=== PATIENT | female | born 1930 | race Caucasian/White ===

== ENCOUNTER 2020-08-18 11:02 | Emergency (ER) | payer MEDICARE, OTHER ==
[~2020-08-18] VITALS: Ht 160 cm; Wt 56.2 kg
[2020-08-18] MEDS ORDERED: CALCIUM 600 +1 EAC5 PO (11:28)
[2020-08-18] MEDS ORDERED: DEPAKOTE250 MG PO (11:29)
[2020-08-18] MEDS ORDERED: LEVOTHYROXINE50 MC1 PO (11:29)
[2020-08-18] MEDS ORDERED: PRESERVISION A1 EACH PO (11:30)
[2020-08-18] MEDS ORDERED: TURMERIC500 M2 PO (11:30)
[2020-08-18] MEDS ORDERED: VITAMIN C500 M5 PO (11:31)
== END 2020-08-18 13:12 | disposition home or self-care (01) ==
LOC: ED 11:02
DX: S52.501A Unspecified fracture of the lower end of right radius, initial encounter for closed fracture (principal); W18.39XA Other fall on same level, initial encounter; E03.9 Hypothyroidism, unspecified; Z88.8 Allergy status to other drugs, medicaments and biological substances; Z79.899 Other long term (current) drug therapy
CPT/HCPCS: 29125; 73110; 73130; 99283-25